=== PATIENT | female | born 1970 | race Caucasian/White ===

== ENCOUNTER → 2018-07-10 | Outpatient (CLI) | payer OTHER ==
[~2018-07-10] MED LIST: ACET325 PO; Antivert25 MG PO; BIRTH CONTROL; CEPH500 PO; CYCL10 PO; DIPH12.5EL PO; DOXY100 PO; FERR325 PO; HYDACE5 PO; HYDMOR2 PO; IBUP400 PO; IBUP800 PO; METR500 PO; MULTIVITAMIN PO; NAPR500; NAPR500 PO; Naprosyn500 MG PO; Norco 5-325 Ta1 EACH PO; OMEP40CA12 PO; OXYACE5T PO; Percocet 5-3251 EACH PO; RXOXYACE PO; TRAM50 PO
== END | disposition home or self-care (01) ==
LOC: LAB SHORT 14:14 → LAB 14:14
DX: B37.2 Candidiasis of skin and nail (principal)
CPT/HCPCS: 87070; 87147; 87205

== ENCOUNTER 2019-02-06 05:45 | Day surgery (SDC) | payer OTHER ==
[~2019-02-06] VITALS: Ht 162.6 cm; Wt 93.7 kg
[~2019-02-06 05:45] MED LIST changes: +Neurontin 300300 MG PO
--- NOTE | 2019-02-06 06:45 | NUR ---
History, Chart, Medications and Allergies reviewed before start of procedure. Lungs clear T/O to Auscultation. Patient confirms NPO status and agrees with scheduled surgery. Patient reports completing Chlorhexadine shower X2 prior to admission to hospital.
--- NOTE | 2019-02-06 10:13 | NUR ---
"DIGITAL FORENSIC ANALYST | REPORT TO REGINO GOMES"
--- NOTE | 2019-02-06 11:19 | NUR ---
PT ARRIVED TO UNIT AT APROX 1045 VIA BED. PT C/O "MARGARITA HORSE" IN L QUAD AREA, AREA IS NOT RED/SWOLLEN. SURGICAL DRESSING C/D/I, POLAR PACK, SCDS IN PLACE. EDUCATED PT THAT THE PAIN IS LIKELY R/T TOURNIQUET PLACEMENT DURING SURGERY AND POSITIONING. PT STATES PAIN IS TOLERABLE AT THIS TIME AND APPEARS TO BE RESTING COMFORTABLY BETWEEN POST-OP VITAL SIGNS. ENCOURAGED PT TO TAKE SMALL SIPS OF CLEARS AND EAT SMALL AMT OF CRACKERS SO THAT PO PAIN MEDICATION CAN BE STARTED.
--- NOTE | 2019-02-06 15:42 | NUR ---
ADMIT PT ARRIVED TO UNIT AT APROX 1525, DR MCKEON INTO ROOM TO SPEAK WITH PARENTS. PT TO OR VIA [facility] AT APROX 1540.
--- NOTE | 2019-02-06 19:05 | NUR ---
SHIFT SUMMARY POD 0 R TKA. MARTÍN WRAP C/D/I, SCDS/ALIX HOSE/CONTINUOUS ICE THERAPY IN PLACE. UP WITH THERAPY AND IN CHAIR. PAIN MANAGED PER EMAR. MEDICATED ONCE WITH ZOFRAN FOR NAUSEA. VOIDING.
[2019-02-07 05:05] LABS: BASOPHILS ABSOLUTE AUTO 0.02 K/mm3 (0.00-0.23); BASOPHILS PERCENT AUTO 0 % (0-2); EOSINOPHILS ABSOLUTE AUTO 0.02 K/mm3 (0.00-0.68); EOSINOPHILS PERCENT AUTO 0 % (0-6); Hematocrit 32.4 % (33.0-51.0); Hemoglobin 10.7 g/dL (11.5-16.0); IMMATURE GRAN ABSOLUTE AUTO 0.03 K/mm3 (0.00-0.10); IMMATURE GRAN PERCENT AUTO 0 % (0-1); LYMPHOCYTES ABSOLUTE AUTO 2.55 K/mm3 (0.84-5.20); LYMPHOCYTES PERCENT AUTO 19 % (21-46); MONOCYTES ABSOLUTE AUTO 1.25 K/mm3 (0.16-1.47); MONOCYTES PERCENT AUTO 9 % (4-13); Mean Corpuscular HGB 30.7 pg (26.0-34.0); Mean Corpuscular Volume 93 fL (80-100); Mean Platelet Volume 10.3 fL (9.1-12.4); NEUTROPHILS ABSOLUTE AUTO 9.87 K/mm3 (1.96-9.15); NEUTROPHILS PERCENT AUTO 72 % (41-73); Platelet Count 243 K/mm3 (150-400); RDW Coefficient Variation 12.9 % (11.7-14.2); RDW Standard Deviation 43.6 fL (35.1-46.3); Red Blood Cell Count 3.48 M/mm3 (3.80-5.20); White Blood Cell Count 13.74 K/mm3 (4.00-11.30)
[2019-02-07 05:32] LABS: Anion Gap 6 mmol/L (6-16); Blood Urea Nitrogen 17 mg/dL (8-24); Bun/Creatinine Ratio 26.7 (12.0-20.0); CO2, Blood 27 mmol/L (21-32); Calcium, Blood 8.9 mg/dL (8.5-10.1); Chloride, Blood 109 mmol/L (98-108); Creatinine, Blood 0.64 mg/dL (0.40-1.00); Glomerular Filtration Rate >60 (60-); Glucose, Blood 114 mg/dL (70-99); Magnesium, Blood 2.2 mg/dL (1.6-2.4); Potassium, Blood 3.9 mmol/L (3.5-5.5); Sodium, Blood 142 mmol/L (136-145)
--- NOTE | 2019-02-07 05:49 | NUR ---
PATIENT SLEPT WELL AFTER PAIN MEDICATION. SHE AND THE SAS DEVELOPER ANALYST WENT FOR 2 WALKS IN THE HALLWAY WITH A FWW. POLAR PACK TO RT KNEE, NO VISIBLE BLEEDING, PAIN HAS BEEN WELL CONTROLED WITH PRESCRIBED MEDICATION AND INTERVENTIONS.
[2019-02-07] MEDS ORDERED: ASPI325EC PO (14:40)
[2019-02-07] MEDS ORDERED: OXYC5 PO (14:40)
[2019-02-07] MEDS ORDERED: Bactrim Ds Tab1 EACH PO (14:41)
--- NOTE | 2019-02-07 17:53 | NUR ---
PT ALSO REPORTS HAVING PAIN MEDICATION AND ABX AT HOME ALREADY.
--- NOTE | 2019-02-07 17:53 | NUR ---
DISCHARGE: PT/FAMILY REPORTS UNDERSTANDING OF DISCHARGE INSTRUCTIONS INCLUDING DRESSING CHANGES AND ICE MACHINE. PT EATING AND DRINKING. VOIDING. PT REPORTS PAIN TOLERABLE ON PO PAIN MEDICATION. DISCUSSED WHAT TIME MEDICATIONS WERE GIVEN LAST. PT BEEN CLEARED BY THERAPY TO GO HOME. PT REPORTS HAVING APPR EQUIP AT HOME.
== END 2019-02-07 17:53 | disposition home or self-care (01) ==
LOC: ORSCMMR 05:45 → ORD 07:30 → ORSCMMR 07:30 → SURS 10:58 → ORSCMMR 13:45 → ORD 13:45 → SURS 02-07 17:53 → ORSCMMR 02-07 17:53
PROVIDERS: Orthopaedic Surgery
PROC: 8E0YXBZ Computer Assisted Procedure of Lower Extremity (ICD-10-PCS; principal; 2019-02-06 07:30)
PROC: 0SRC0J9 Replacement of Right Knee Joint with Synthetic Substitute, Cemented, Open Approach (ICD-10-PCS; principal; 2019-02-06 07:30)
DX: M17.11 Unilateral primary osteoarthritis, right knee (principal); E66.9 Obesity, unspecified; Z68.35 Body mass index [BMI] 35.0-35.9, adult
CPT/HCPCS: 36415; 73560-RT; 80048; 83735; 85025; 88300; 97110; 97116; 97162; 97530; C1713; C1776; J0171; J0690; J0735; J1100; J1885; J2250; J2405; J2704; J2795; J3010; J7120

== ENCOUNTER 2021-03-05 05:12 | Emergency (ER) | payer OTHER ==
[~2021-03-05] VITALS: Ht 160 cm; Wt 99.8 kg
[~2021-03-05 05:12] MED LIST changes: +ASPI325EC PO; +Bactrim Ds Tab1 EACH PO; +ONDA4ODT SL; +OXYC5 PO
[2021-03-05 06:02] LABS: Alanine Aminotransfer (ALT/SGP 130 U/L (12-78); Albumin, Blood 3.2 g/dL (3.4-5.0); Albumin/Globulin Ratio 0.7 (0.8-1.8); Alk Phos 111 U/L (50-136); Anion Gap 5 mmol/L (6-16); Aspartate Aminotrans (AST/SGOT 55 U/L (12-37); Bilirubin, Total 0.5 mg/dL (0.1-1.0); Blood Urea Nitrogen 14 mg/dL (8-24); Bun/Creatinine Ratio 21.5 (12.0-20.0); CO2, Blood 25 mmol/L (21-32); Calcium, Blood 8.5 mg/dL (8.5-10.1); Chloride, Blood 111 mmol/L (98-108); Creatinine, Blood 0.65 mg/dL (0.40-1.00); Globulin, Blood 4.3 g/dL (2.2-4.0); Glomerular Filtration Rate >60 (60-); Glucose, Blood 125 mg/dL (70-99); Potassium, Blood 3.7 mmol/L (3.5-5.5); Sodium, Blood 141 mmol/L (136-145); Total Protein, Blood 7.5 g/dL (6.4-8.2); Troponin I <0.015 ng/mL (0.000-0.040)
[2021-03-05 06:05] LABS: BASOPHILS ABSOLUTE AUTO 0.02 K/mm3 (0.00-0.23); BASOPHILS PERCENT AUTO 0 % (0-2); EOSINOPHILS ABSOLUTE AUTO 0.07 K/mm3 (0.00-0.68); EOSINOPHILS PERCENT AUTO 1 % (0-6); Hematocrit 36.2 % (33.0-51.0); Hemoglobin 11.8 g/dL (11.5-16.0); IMMATURE GRAN ABSOLUTE AUTO 0.02 K/mm3 (0.00-0.10); IMMATURE GRAN PERCENT AUTO 0 % (0-1); LYMPHOCYTES ABSOLUTE AUTO 2.44 K/mm3 (0.84-5.20); LYMPHOCYTES PERCENT AUTO 29 % (21-46); MONOCYTES ABSOLUTE AUTO 0.63 K/mm3 (0.16-1.47); MONOCYTES PERCENT AUTO 7 % (4-13); Mean Corpuscular HGB Conc 32.6 g/dL (31.5-36.5); Mean Corpuscular Volume 92 fL (80-100); Mean Platelet Volume 10.6 fL (9.1-12.4); NEUTROPHILS ABSOLUTE AUTO 5.28 K/mm3 (1.96-9.15); NEUTROPHILS PERCENT AUTO 63 % (41-73); Platelet Count 234 K/mm3 (150-400); RDW Coefficient Variation 12.8 % (11.7-14.2); RDW Standard Deviation 43.3 fL (35.1-46.3); Red Blood Cell Count 3.93 M/mm3 (3.80-5.20); White Blood Cell Count 8.46 K/mm3 (4.00-11.30)
[2021-03-05] MEDS ORDERED: IBUP800 PO (06:18)
[2021-03-05] MEDS ORDERED: TRAM50 PO (06:18)
== END 2021-03-05 06:25 | disposition home or self-care (01) ==
LOC: ER 05:12
PROVIDERS: Student in an Organized Health Care Education/Training Program
DX: R07.89 Other chest pain (principal); Z91.048 Other nonmedicinal substance allergy status; Z88.1 Allergy status to other antibiotic agents
CPT/HCPCS: 36415; 71045; 80053; 83690; 84484; 85025; 93005; 93010; 99285-25

== ENCOUNTER 2022-04-02 11:16 | Emergency (ER) | payer OTHER ==
[~2022-04-02] VITALS: Ht 160 cm; Wt 104.3 kg
[2022-04-02] MEDS ORDERED: IBUP400 PO (11:46)
== END 2022-04-02 11:55 | disposition home or self-care (01) ==
LOC: ER 11:16
DX: M79.662 Pain in left lower leg (principal); Z88.8 Allergy status to other drugs, medicaments and biological substances; Z88.1 Allergy status to other antibiotic agents
CPT/HCPCS: 99283; A9270

== ENCOUNTER 2022-12-30 06:40 | Emergency (ER) | payer OTHER ==
[~2022-12-30] VITALS: Ht 160 cm; Wt 99.8 kg
[2022-12-30 07:08] LABS: BASOPHILS ABSOLUTE AUTO 0.02 K/mm3 (0.00-0.23); BASOPHILS PERCENT AUTO 0 % (0-2); EOSINOPHILS ABSOLUTE AUTO 0.09 K/mm3 (0.00-0.68); EOSINOPHILS PERCENT AUTO 1 % (0-6); Hematocrit 38.5 % (33.0-51.0); Hemoglobin 13.1 g/dL (11.5-16.0); IMMATURE GRAN ABSOLUTE AUTO 0.03 K/mm3 (0.00-0.10); IMMATURE GRAN PERCENT AUTO 0 % (0-1); LYMPHOCYTES ABSOLUTE AUTO 3.73 K/mm3 (0.84-5.20); LYMPHOCYTES PERCENT AUTO 35 % (21-46); MONOCYTES ABSOLUTE AUTO 0.86 K/mm3 (0.16-1.47); MONOCYTES PERCENT AUTO 8 % (4-13); Mean Corpuscular HGB 30.7 pg (26.0-34.0); Mean Corpuscular Volume 90 fL (80-100); Mean Platelet Volume 9.8 fL (9.1-12.4); NEUTROPHILS ABSOLUTE AUTO 5.98 K/mm3 (1.96-9.15); NEUTROPHILS PERCENT AUTO 56 % (41-73); Platelet Count 317 K/mm3 (150-400); RDW Coefficient Variation 12.8 % (11.7-14.2); RDW Standard Deviation 42.1 fL (35.1-46.3); Red Blood Cell Count 4.27 M/mm3 (3.80-5.20); White Blood Cell Count 10.71 K/mm3 (4.00-11.30)
[2022-12-30 07:27] LABS: Albumin, Blood 3.7 g/dL (3.4-5.0); Albumin/Globulin Ratio 0.8 (0.8-1.8); Bilirubin, Total 0.5 mg/dL (0.1-1.0); Bun/Creatinine Ratio 33.1 (12.0-20.0); Calcium, Blood 8.9 mg/dL (8.5-10.1); Creatinine, Blood 0.7 mg/dL (0.40-1.00); Globulin, Blood 4.5 g/dL (2.2-4.0); Total Protein, Blood 8.2 g/dL (6.4-8.2)
[2022-12-30 08:00] VITALS: BP 126/78
[2022-12-30] MEDS ORDERED: IBUP600 PO (08:54)
[2022-12-30] MEDS ORDERED: CYCL10 PO (08:54)
== END 2022-12-30 09:09 | disposition home or self-care (01) ==
LOC: ER 06:40
PROVIDERS: Family Medicine
DX: R07.89 Other chest pain (principal); R06.02 Shortness of breath; Z91.048 Other nonmedicinal substance allergy status; Z88.1 Allergy status to other antibiotic agents
CPT/HCPCS: 71046; 80053; 84484; 85025; 85379; 93005; 93010; 99285-25

== ENCOUNTER 2023-03-05 00:23 | Emergency (ER) | payer OTHER ==
[~2023-03-05] VITALS: Ht 160 cm; Wt 99.8 kg
[~2023-03-05 00:23] MED LIST changes: +IBUP600 PO
[2023-03-05 01:09] LABS: BASOPHILS ABSOLUTE AUTO 0.02 K/mm3 (0.00-0.23); BASOPHILS PERCENT AUTO 0 % (0-2); EOSINOPHILS ABSOLUTE AUTO 0.08 K/mm3 (0.00-0.68); EOSINOPHILS PERCENT AUTO 1 % (0-6); IMMATURE GRAN ABSOLUTE AUTO 0.02 K/mm3 (0.00-0.10); IMMATURE GRAN PERCENT AUTO 0 % (0-1); LYMPHOCYTES ABSOLUTE AUTO 3.25 K/mm3 (0.84-5.20); LYMPHOCYTES PERCENT AUTO 31 % (21-46); MONOCYTES ABSOLUTE AUTO 0.79 K/mm3 (0.16-1.47); MONOCYTES PERCENT AUTO 8 % (4-13); Mean Corpuscular HGB 30.4 pg (26.0-34.0); Mean Corpuscular HGB Conc 33.3 g/dL (31.5-36.5); Mean Corpuscular Volume 91 fL (80-100); NEUTROPHILS ABSOLUTE AUTO 6.38 K/mm3 (1.96-9.15); NEUTROPHILS PERCENT AUTO 61 % (41-73); Platelet Count 273 K/mm3 (150-400); RDW Coefficient Variation 12.6 % (11.7-14.2); Red Blood Cell Count 4.27 M/mm3 (3.80-5.20); White Blood Cell Count 10.54 K/mm3 (4.00-11.30)
[2023-03-05 01:27] LABS: Albumin, Blood 3.5 g/dL (3.4-5.0); Albumin/Globulin Ratio 0.7 (0.8-1.8); Bilirubin, Total 0.6 mg/dL (0.1-1.0); Bun/Creatinine Ratio 23.6 (12.0-20.0); Calcium, Blood 9.4 mg/dL (8.5-10.1); Creatinine, Blood 0.68 mg/dL (0.40-1.00); Globulin, Blood 4.8 g/dL (2.2-4.0); Total Protein, Blood 8.3 g/dL (6.4-8.2)
[2023-03-05 03:45] VITALS: BP 141/81
== END 2023-03-05 04:20 | disposition home or self-care (01) ==
LOC: ER 00:23
PROVIDERS: Emergency Medicine
DX: K80.20 Calculus of gallbladder without cholecystitis without obstruction (principal); R07.9 Chest pain, unspecified; Z88.1 Allergy status to other antibiotic agents; Z91.09 Other allergy status, other than to drugs and biological substances
CPT/HCPCS: 71045; 76705; 80053; 83690; 84484; 85025; 93005; 93010; 96374; 96375; 99285-25; J2405; J3010

== ENCOUNTER 2023-06-06 21:22 | Observation (INO) | payer OTHER ==
[~2023-06-06] VITALS: Ht 160 cm; Wt 108.9 kg
[2023-06-06 21:44] LABS: BASOPHILS ABSOLUTE AUTO 0.03 K/mm3 (0.00-0.23); BASOPHILS PERCENT AUTO 0 % (0-2); EOSINOPHILS ABSOLUTE AUTO 0.08 K/mm3 (0.00-0.68); EOSINOPHILS PERCENT AUTO 1 % (0-6); Hematocrit 40.3 % (33.0-51.0); Hemoglobin 13.4 g/dL (11.5-16.0); IMMATURE GRAN ABSOLUTE AUTO 0.03 K/mm3 (0.00-0.10); IMMATURE GRAN PERCENT AUTO 0 % (0-1); LYMPHOCYTES ABSOLUTE AUTO 3.68 K/mm3 (0.84-5.20); LYMPHOCYTES PERCENT AUTO 31 % (21-46); MONOCYTES PERCENT AUTO 7 % (4-13); Mean Corpuscular HGB 30.1 pg (26.0-34.0); Mean Corpuscular HGB Conc 33.3 g/dL (31.5-36.5); Mean Corpuscular Volume 91 fL (80-100); Mean Platelet Volume 9.5 fL (9.1-12.4); NEUTROPHILS ABSOLUTE AUTO 7.42 K/mm3 (1.96-9.15); NEUTROPHILS PERCENT AUTO 62 % (41-73); Platelet Count 318 K/mm3 (150-400); RDW Coefficient Variation 12.8 % (11.7-14.2); RDW Standard Deviation 42.4 fL (35.1-46.3); Red Blood Cell Count 4.45 M/mm3 (3.80-5.20); White Blood Cell Count 12.04 K/mm3 (4.00-11.30)
[2023-06-06 22:01] LABS: Source, Urine Clean Catch
[2023-06-06 22:03] LABS: Albumin, Blood 3.7 g/dL (3.4-5.0); Albumin/Globulin Ratio 0.7 (0.8-1.8); Bilirubin, Total 0.4 mg/dL (0.1-1.0); Bun/Creatinine Ratio 22.3 (12.0-20.0); Calcium, Blood 9.4 mg/dL (8.5-10.1); Creatinine, Blood 0.76 mg/dL (0.40-1.00); Potassium, Blood 3.8 mmol/L (3.5-5.5); Total Protein, Blood 8.7 g/dL (6.4-8.2)
[2023-06-06 22:05] LABS: Bilirubin, Urine Neg (Neg); Blood, Urine 1+ (Neg); Glucose Qualitative, Urine Neg (Neg); Ketones, Urine Neg (Neg); Leukocyte Esterase, Urine 3+ (Neg); Nitrite, Urine Neg (Neg); Protein, Urine 1+ (Neg); Specific Gravity, Urine 1.025 (1.003-1.022); Urobilinogen, Urine 1+ (Normal)
[2023-06-06 22:11] LABS: Appearance, Urine Hazy (Clear); Color, Urine Yellow (P-Yellow)
[2023-06-06 22:12] LABS: White Blood Cells, Urine 25-50 /hpf (0-5)
[2023-06-06 22:13] LABS: Amorphous Light (0-Heavy); Bacteria Mod /hpf; Mucus Light (0-Heavy); Red Blood Cells, Urine 0-2 /hpf (0-2); Squamous Epithelial Cells Few /hpf (Few)
[2023-06-07] VITALS (25 sets, daily range): BP systolic 118–148; BP diastolic 68–97
--- NOTE | 2023-06-07 03:07 | NUR ---
PT ARRIVED TO ROOM 210 FROM ER. PT A/O, TX SELF TO BED, PAINFUL W/MVMT BUT LEONID WELL. VSS, PT REP RUQ ABD PAIN 6/10, REP PAIN LEONID AT THS TIME. ABD SOFT, TENDER TO PALP. PT DENEIS NAUSEA AT THIS TIME. SMALL CUP OF APPLE JUICE PROVIDED, PT EDUCATED ON NPO STATUS AT 0700, ORIENTED TO ROOM/CALL LIGHT.
--- NOTE | 2023-06-07 07:43 | NUR ---
PT VSS SINCE ARRIVING TO FLOOR. PT REP PAIN LEONID, DENIED N/V. PT NPO SINCE 629 FOR PLAN FOR SURGERY TODAY. IVF CONT PER ORDERS.
--- NOTE | 2023-06-07 12:40 | NUR ---
PATIENT TO DAY SURGERY VIA [facility].
--- NOTE | 2023-06-07 17:30 | NUR ---
SHIFT SUMMARY PATIENT IS POD 0 LAP BENJAMIN. X3 LAP SITES WITH STERI STRIPS IN PLACE AND C/D/I. CARON DRAIN TO RLQ WITH TEGADERM DRESSING. S/S CARON AYALA IS COMPRESSED AND INTACT. PATIENT IS DROWSY BUT ALERT. DENIES N/V AT THIS TIME. VSS, CALL LIGHT IN REACH.
[2023-06-08 00:05] VITALS: BP 121/68
[2023-06-08 04:50] VITALS: BP 91/76
--- NOTE | 2023-06-08 06:18 | NUR ---
POD 1 S/P LAP BENJAMIN. PT VSS T/O NIGHT. INCISIONS CDI. CARON PUT OUT 20 ML SS DRNG. PT REP PAIN MINIMAL, DECLINED NEED FOR PAIN MEDS. PT LEONID REG PO, DENIED N/V, REP +FLATUS. PT AMB W/SBA, LEONID WELL. PLAN TO DC TODAY.
[2023-06-08 07:24] VITALS: BP 130/71
--- NOTE | 2023-06-08 10:57 | NUR ---
DISCHARGE IV TAKEN OUT AND ALL INSTRUCTIONS SIGNED AND ACKOWLEDGED. CARON DRAIN TAKEN OUT AND DRESSING IS C/D/I. PATIENT LEAVES VIA PRIVATE VEHICLE.
== END 2023-06-08 10:45 | disposition home or self-care (01) ==
LOC: ER 21:22 → SURS 21:23
PROVIDERS: Emergency Medicine; ADMIT Surgery
PROC: 0FT44ZZ Resection of Gallbladder, Percutaneous Endoscopic Approach (ICD-10-PCS; principal; 2023-06-06)
DX: K80.12 Calculus of gallbladder with acute and chronic cholecystitis without obstruction (principal); Z88.1 Allergy status to other antibiotic agents; Z79.899 Other long term (current) drug therapy
CPT/HCPCS: 76705; 80053; 81001; 83690; 85025; 87086; 88304; 93005; 93010; 96365; 96366; 96375; 96376; 99285-25; A9270; G0378; J0690; J0696; J1100; J1170; J1885; J2270; J2405; J2704; J2765; J3010; J7030; J7120

== ENCOUNTER → 2024-08-30 | Outpatient (CLI) | payer OTHER ==
[2024-08-30 17:44] LABS: Source, Urine Voided
[2024-08-30 19:17] LABS: Appearance, Urine Cloudy (Clear); Bilirubin, Urine Neg (Neg); Blood, Urine 4+ (Neg); Color, Urine Yellow (P-Yellow); Glucose Qualitative, Urine Neg (Neg); Ketones, Urine Neg (Neg); Leukocyte Esterase, Urine 3+ (Neg); Nitrite, Urine Pos (Neg); Protein, Urine 2+ (Neg); Urobilinogen, Urine NORM (Normal)
[2024-08-30 19:29] LABS: Bacteria Many /hpf; Squamous Epithelial Cells Few /hpf (Few); White Blood Cells, Urine 50-100 /hpf (0-5)
== END ==
LOC: LAB 17:41 → LAB SHORT 17:41
PROVIDERS: Family Medicine
DX: N30.01 Acute cystitis with hematuria (principal)
CPT/HCPCS: 81001; 87077; 87086; 87186

== ENCOUNTER 2024-12-30 08:20 | Day surgery (SDC) | payer OTHER ==
[~2024-12-30] VITALS: Ht 160 cm; Wt 104.0 kg
[2024-12-30] MEDS ORDERED: NS 500 ML IV ONE ×3 (08:46→12:05)
--- NOTE | 2024-12-30 08:47 | NUR ---
12/30/24 0847 Indiana Saravia CALL LIGHT WITHIN REACH.
[2024-12-30] MEDS ORDERED: CeFAZolin Sodium 2,000 MG VIAL ONE (09:00)
[2024-12-30] MEDS ORDERED: NS 100 ML IV ONE (10:11)
[2024-12-30 11:03] VITALS: BP 134/66
--- NOTE | 2024-12-30 11:17 | NUR ---
12/30/24 1117 Candida Ferraro CALLED MARCELLE (FAMILY MEMBER) AT 1110, INSTRUCTED TO PULL UP TO PT STORES ASSISTANT AREA. ICE PACK PLACED ON LEFT ARM, LEFT ARM ELEVATED ON PILLOW
== END 2024-12-30 12:04 | disposition home or self-care (01) ==
LOC: ORSCSDS 08:20
PROVIDERS: Orthopaedic Surgery
PROC: 01N50ZZ Release Median Nerve, Open Approach (ICD-10-PCS; principal; 2024-12-30 10:45)
DX: G56.01 Carpal tunnel syndrome, right upper limb (principal); M18.11 Unilateral primary osteoarthritis of first carpometacarpal joint, right hand
CPT/HCPCS: J0690; J2704; J7040